=== PATIENT | male | born 1960 | race Caucasian/White ===

== ENCOUNTER 2020-06-18 15:35 | Emergency (ER) | payer BC, OTHER ==
--- NOTE | 2020-06-18 17:27 | US ---
Testicular ultrasound: Multiple real-time images of both testicles were obtained. Large septated hydrocele is noted on the left side with measurements of 13.6 x 8.7 x 8.4 cm. No right-sided hydrocele is seen. Both testicles have a homogeneous ultrasound appearance. Arterial and venous blood flow are seen within both testicles. Measurements: Right testicle: 4.1 x 2.4 x 1.7 cm Left testicle: 5.8 x 3.6 x 3.1 cm Impression: 1. Large multiseptated hydrocele on the left side with measurements as noted above. 2. Other portions of the testicular ultrasound appear within normal limits. Diagnostic code #3
--- NOTE | 2020-06-18 18:19 | EDM.PDOC ---
ED HPI GENERAL MEDICAL PROBLEM - General Chief Complaint: General Stated Complaint: SENT BY DR ROSADO FOR TESTICLE ISSUE Time Seen by Provider: 06/18/20 16:29 Source of Information: Reports: Patient, RN Notes Reviewed - History of Present Illness INITIAL COMMENTS - FREE TEXT/NARRATIVE: L testicle/scrotum has been started getting large quite a few yrs ago, has continued to get worse, no pain but becoming very annoying due to increasing size. He has been using special support underwear which had been helping, no even that is not as helpful as it used to be. Has also developed voiding difficulty over the past yr, self cath most if not all of the time. Left Scrotum Pain Score (Numeric/FACES): 2 - Related Data Allergies Allergy/AdvReac Type Severity Reaction Status Date / Time Penicillins Allergy Cannot Verified 06/18/20 16:00 Remember Home Meds: Home Meds Aspirin [Adult Low Dose Aspirin EC] 1 tab PO DAILY 06/18/20 [History] Dutasteride [Avodart] 1 tab PO DAILY 06/18/20 [History] Omeprazole 1 tab PO DAILY 06/18/20 [History] Sertraline HCl [Zoloft] 1 tab PO DAILY 06/18/20 [History] Tamsulosin HCl [Flomax] 1 tab PO DAILY 06/18/20 [History] amLODIPine [Norvasc] 1 tab PO DAILY 06/18/20 [History] hydroCHLOROthiazide [Hydrochlorothiazide] 1 tab PO DAILY 06/18/20 [History] lisinopriL [Lisinopril] 1 tab PO DAILY 06/18/20 [History] Past Medical History Cardiovascular History: Reports: Hypertension Genitourinary History: Reports: Prostate Disorder - Infectious Disease History Infectious Disease History: Reports: Chicken Pox, Hepatitis C, Measles, Mumps - Past Surgical History HEENT Surgical History: Reports: Tonsillectomy Social & Family History - Tobacco Use Tobacco Use Status *Q: Current Every Day Tobacco User Years of Tobacco use: 40 Packs/Tins Daily: 1 - Caffeine Use Caffeine Use: Reports: Coffee, Soda - Recreational Drug Use Recreational Drug Use: No ED ROS GENERAL - Review of Systems Review Of Systems: See Below Constitutional: Denies: Fever, Chills HEENT: Reports: No Symptoms Respiratory: Reports: No Symptoms Cardiovascular: Reports: No Symptoms GI/Abdominal: Reports: No Symptoms : Reports: Other (Worsening swelling/enlargement L scrotum) Musculoskeletal: Denies: Back Pain Skin: Denies: Rash, Erythema ED EXAM, GENERAL - Physical Exam Exam: See Below General Appearance: Alert, No Apparent Distress Head: Atraumatic Neck: Supple Respiratory/Chest: No Respiratory Distress GI/Abdominal: Soft, Non-Tender (Male) Exam: Scrotal Swelling (L scrotum very swollen, testicle not palpable due to what seems to be fluid filled L scrotum, no unusual warmth, erythema or tenderness) Back Exam: No: CVA Tenderness (L), CVA Tenderness (R) Neurological: Alert, Oriented, No Motor/Sensory Deficits Skin Exam: Warm, Dry Course - Vital Signs Last Recorded V/S: Last Vital Signs Temp 97.4 F 06/18/20 15:55 Pulse 64 06/18/20 15:55 Resp 16 06/18/20 15:55 BP 132/77 06/18/20 15:55 Pulse Ox 99 06/18/20 15:55 - Re-Assessments/Exams Free Text/Narrative Re-Assessment/Exam: 06/18/20 18:22. US shows large septated hydrocele, see Radiology report for details. Discharge instr. as documented. He has a clinic appt. this coming Monday 3 days from now. Departure - Departure Time of Disposition: 18:18 Disposition: Home, Self-Care 01 Condition: Fair Clinical Impression: Chronic hydrocele - Discharge Information Instructions: Hydrocele, Adult Referrals: Nancy Rosado MD [Primary Care Provider] - Forms: ED Department Discharge Additional Instructions: Ultrasound shows a large L sided hydrocele which is a fluid collection outside the testicle but within the scrotum. Bring the US report with you when you see Dr Rosado Monday, referral options can be discussed. Return to ED as needed. Sepsis Event Note (ED) - Evaluation Sepsis Screening Result: No Definite Risk
== END 2020-06-18 18:47 | disposition home or self-care (01) ==
LOC: JD.ED 15:35
DX: N43.3 Hydrocele, unspecified (principal); I10 Essential (primary) hypertension; N42.9 Disorder of prostate, unspecified; Z88.0 Allergy status to penicillin; Z79.82 Long term (current) use of aspirin; Z79.899 Other long term (current) drug therapy; Z72.0 Tobacco use
CPT/HCPCS: 76870; 76870-26; 93975; 99283; 99284-25